=== PATIENT | female | born 1970 | race Caucasian/White ===

== ENCOUNTER 2017-05-07 10:02 | Inpatient (IN) ==
--- OUTSIDE RECORDS SUMMARY | 2017-05-07 11:23 | External Medical Summary | Referral Summary ---
:1970 Author Care Team Providers Name Role Phone Lucille Cintron Primary Care Physician Encounter [facility] [id number] Date(s): 07/13/14 - 07/13/14 Via [facility], Venkatesh Family [address] [place] [id number] Discharge Diagnosis: Cough Discharge Diagnosis: Bronchitis Discharge Disposition: Home or Self Care Attending Physician: Bonnie Cantu APRN Admitting Physician: Bonnie Cantu APRN Vital Signs Most recent to oldest [Reference Range]: 1 Temperature Tympanic [36.6-38.1 degC] 37 degC (07/13/14 2:05 PM) Peripheral Pulse Rate [60-100 bpm] 72 bpm (07/13/14 2:05 PM) Blood Pressure [90-140/60-90 mmHg] 132/88 mmHg (07/13/14 2:05 PM) Problem List Condition Effective Dates Status Health Status Informant Allergy(Confirmed) Active Allergic rhinitis/Hay Fever(Confirmed) Active Depression(Confirmed) Active Fibromyalgia(Confirmed) Active Migraine headache(Confirmed) Active Overweight(Confirmed) Active Seasonal allergies(Confirmed) Active Sleep apnea(Confirmed) Active 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) Tobacco user(Confirmed) Active patient Allergies, Adverse Reactions, Alerts Substance Reaction Severity Status gabapentin Active temazepam Active Wellbutrin1 Active 1had suicidal thoughts Medications Lolita-D 12 Hour 1 tabs, Oral, Daily, 0 Refill(s) Start Date: 07/13/14 Status: Orderedamoxicillin 875 mg oral tablet 1 tabs, Oral, BID, X 7 days, # 14 tabs, 0 Refill(s), Pharmacy: [facility] #[id number], 1 tabs OralBID,x7 days Start Date: 07/13/14 Stop Date: 07/20/14 Status: OrderedCeleXA 40 mg oral tablet See Instructions, TAKE ONE TABLET BY MOUTH EVERY DAY, # 30 tabs, eRx: [facility] #[id number], TAKEONE TABLET BY MOUTH EVERY DAY Special Instructions: TAKE ONE TABLET BY MOUTH EVERY DAY Start Date: 06/09/14 Status: OrderedFlexeril 5 mg, Oral, BID, Anxiety, also for fibromyalgia pain, 0 Refill(s) Special Instructions: also for fibromyalgia pain Start Date: 09/30/13 Status: OrderedMaxalt 10 mg oral tablet tabs, Oral, Daily, 0 Refill(s) Start Date: 09/30/13 Status: OrderedMucinex D 1 tabs, Oral, BID, 0 Refill(s) Start Date: 06/04/14 Status: Orderedmultivitamin 1 tabs, Daily, 0 Refill(s) Start Date: 06/04/14 Status: OrderedPromethazine with Codeine 6.25 mg-10 mg/5 mL oral syrup 5 mL, Oral, q4hr, as needed for cough, # 60 mL, 0 Refill(s) Start Date: 06/04/14 Status: Ordered Results Hematology Most recent to oldest [Reference Range]: 1 WBC [5.0-10.0 K/uL] 10.4 K/uL *HI* (07/13/14 1:58 PM) RBC [3.70-5.20 M/uL] 4.30 M/uL (07/13/14 1:58 PM) Hgb [12.0-16.0 gm/dL] 13.4 gm/dL (07/13/14 1:58 PM) Hct [37.0-47.0 %] 38.4 % (07/13/14 1:58 PM) MCV [80.0-96.0 fL] 89.3 fL (07/13/14 1:58 PM) MCH [26.0-34.0 pg] 31.2 pg (07/13/14 1:58 PM) MCHC [32.0-36.0 gm/dL] 34.9 gm/dL (07/13/14 1:58 PM) RDW [0.0-14.5 %] 12.8 % (07/13/14 1:58 PM) Platelet [150-400 K/uL] 228 K/uL (07/13/14 1:58 PM) MPV [8.8-14.8 fL] 9.6 fL (07/13/14 1:58 PM) Neutrophils [50-70 %] 62 % (07/13/14 1:58 PM) Lymphocytes [20-40 %] 28 % (07/13/14 1:58 PM) Monocytes [4-8 %] 4 % (07/13/14 1:58 PM) Eosinophils [0-6 %] 5 % (07/13/14 1:58 PM) Basophils [0-2 %] 1 % (07/13/14 1:58 PM) Neutro Absolute [2.50-7.00 K/uL] 6.47 K/uL (07/13/14 1:58 PM) Lymph Absolute [1.00-4.00 K/uL] 2.90 K/uL (07/13/14 1:58 PM) [place] Absolute [0.20-0.80 K/uL] 0.45 K/uL (07/13/14 1:58 PM) Eos Absolute [0.00-0.60 K/uL] 0.55 K/uL (07/13/14 1:58 PM) Baso Absolute [0.00-0.30 K/uL] 0.06 K/uL (07/13/14 1:58 PM) Immunizations Vaccine Date Refusal Reason tetanus/diphth/pertuss (Tdap) adult/adol 09/12/12 pneumococcal 23-polyvalent vaccine 12/23/08 tetanus toxoid 11/13/95 Procedures Procedure Date Related Diagnosis Body Site Collection of venous blood by venipuncture 07/13/14 Bilateral tubal ligation 1990 section Hysterectomy Knee scope Social History Social History Type Response Smoking Status Former smoker; Type: Cigarettes Assessment and Plan Extracted from: Title: Office Visit Note Author: Bonnie Cantu APRN Date: 07/13/14 Assessment/Plan 1.Bronchitis medrol dose pack, amox. cont with mucinex dm, humidifier. avoid irritant. let us know if s/s persist or worsen. Cough Orders: amoxicillin, 1 tabs, Oral, BID, X 7 days, # 14 tabs, 0 Refill(s), Pharmacy: [facility] #[id number], 1 tabs Oral BID,x7 days
--- NOTE | 2017-05-07 11:42 | History and Physical ---
HPI Patient is a 46-year-old female who presented to the office to see Dr. Lev Pepe this morning. She presented with a chief complaint of a three-week history of nausea, vomiting, diarrhea. She would getting better for a few days and then this started up again. In addition, the patient also presented with the same duration of diffuse abdominal pain in the left lower quadrant. Over the last two to three days she has been having difficulty holding liquids down. She feels "miserable." Her abdominal pain is described as a constant wave, cramping and severely manifested. She had diarrhea six times every day. On the days she has diarrhea she became lightheaded. She says she feels like she is going to pass out. She has tried Zantac and probiotics to no effect. The patient did develop upper URI symptoms three weeks ago. She was treated with amoxicillin and prednisone by a physician, I believe. REVIEW OF SYSTEMS Denies hematochezia, melena. Denies TIA or CVA symptoms. Denies hematemesis. No hemoptysis. No fever or chills. PAST MEDICAL HISTORY 1. Anxiety disorder. 2. Depression. 3. Migraine headache. 4. Diabetes. 5. Asthma. 6. Fibromyalgia. 7. Sleep apnea. 8. Exogenous obesity. 9. Hyperprolactinemia. 10. Galactorrhea in a female. 11. Morbid obesity with BMI 40-44.9 adult. ALLERGIES Codeine, bupropion, hydrocodone. FAMILY HISTORY She has listed diabetes in father and paternal grandmother, alcoholism in paternal grandfather. Bone cancer in maternal grandfather. Colon cancer, anemia. SOCIAL HISTORY The patient is , with two children. She does exercise two to four times per week. She is a former smoker. She drinks on social basis typically holidays and special occasions only. She drinks caffeine, one to two cups per day. CURRENT MEDICATIONS 1. Albuterol inhaler two puffs q.i.d. p.r.n. 2. Celexa 40 mg one tablet daily. 3. Cyclobenzaprine 10 mg one tablet at bedtime. 4. Flonase one spray each nostril twice daily. 5. Fluticasone/salmeterol 100/50 mcg one puff q.i.d. 6. Klonopin 0.5 mg one tablet t.i.d. p.r.n. 7. Multivitamin one tablet p.o. q.a.m. 8. Rizatriptan 10 mg one tablet daily. 9. Singular 10 mg one tablet p.o. q.h.s. 10. Venlafaxine 25 mg one tablet daily. 11. Zyrtec 10 mg one tablet daily. PHYSICAL EXAM GENERAL: The patient looks ill. HEENT: Unremarkable. NECK: Supple. CHEST: Lungs are clear to auscultation bilaterally. No wheezing or rales. CARDIOVASCULAR: Regular rate and rhythm. No murmur. ABDOMEN: Soft. The patient is tender diffusely, most severe in the left lower quadrant and to some extent in the right lower quadrant. Bowel sounds are normoactive. The patient does not present with a surgical abdomen, i.e., no guarding or rebound. EXTREMITIES: No cyanosis, clubbing or edema. NEUROLOGIC: Grossly intact. The patient is awake, alert and oriented x 3. No focal neurologic deficits. ASSESSMENT 1. Diffuse abdominal pain, mostly in left lower quadrant. 2. Intractable nausea and vomiting. 3. Intractable/recurrent diarrhea. 4. Acute dehydration. 5. Depression which is chronic. 6. Asthma - quiescent. PLAN 1. Admit patient to [facility] for further evaluation and recommendations. 2. Start IV fluids. 3. Start patient on empiric Flagyl for coverage of possible Clostridium difficile. 4. Obtain CT of abdomen and pelvis with IV contrast only. 5. Make patient n.p.o. for now. We spent about 30 minutes for this admission. [facility]ITALОльга
[2017-05-07 12:10] VITALS: BMI 44.6
[2017-05-07] MEDS ORDERED: METOCLOPRAMIDE 10mg/2ml INJECTION IVP PRN (12:18)
[2017-05-07] MEDS ORDERED: D5-1/2NS with KCL 20mEq 1,000 ML IV SCH ×2 (12:30→14:30)
[2017-05-07] MEDS: PANTOPRAZOLE 40 MG INJECTION IVP SCH ×2 (12:35→23:01)
[2017-05-07] MEDS: MetroNIDAZOLE PB 500 MG/100 ML BAG IV SCH ×2 (13:36→20:27)
[2017-05-07] MEDS: MORPHINE SULFATE 4mg INJECTION IVP PRN ×2 (13:42→20:23)
[2017-05-07] MEDS: ONDANSETRON 4 MG/2 ML INJECTION IVP PRN ×2 (13:44→20:22)
[2017-05-07] MEDS ORDERED: SALINE FLUSH 10ml SYRINGE ONE (14:54)
[2017-05-07] MEDS ORDERED: NS 100 ML ONE (14:54)
[2017-05-07] MEDS ORDERED: IOHEXOL 300mg/ml 100ml INJECTION ONE (14:54)
--- NOTE | 2017-05-07 16:32 | CT Scan Report ---
EXAM: CT abdomen pelvis with contrast. LOCATION OF DICTATION: [place] HISTORY: SEVERE ABD. PAIN,N/V COMPARISON: No prior studies are available for comparison TECHNIQUE: CT images were obtained of the abdomen and pelvis utilizing 85 mL of Omnipaque 300. Coronal and sagittal reformations were utilized. Automated Exposure Control and Iterative Reconstruction dose reducing techniques were utilized. CT ABDOMEN PELVIS FINDINGS: LUNG BASES: Unremarkable LIVER: The liver is mildly enlarged and demonstrates fatty infiltration. The liver measures 20.5 cm craniocaudally. SPLEEN: Unremarkable. GALLBLADDER: Unremarkable. PANCREAS: Unremarkable. ADRENAL GLANDS: Unremarkable. KIDNEYS: Unremarkable. AORTA: Unremarkable. LYMPH NODES: Unremarkable. STOMACH BOWEL LOOPS: Moderate mural thickening demonstrated about the ascending and transverse colon compatible with inflammatory or infectious colitis. There is some mild pericolonic fat stranding noted. No evidence for bowel obstruction or free air. The small bowel loops are normal. What appears to represent the appendix is normal. PERITONEAL CAVITY: There is no abdominal pelvic ascites. CT PELVIS URINARY BLADDER: Unremarkable. UTERUS: The vaginal cuff is normal. OSSEOUS STRUCTURES: There is mild spondylosis of the thoracolumbar spine. IMPRESSION: 1. Moderate mural thickening involving the ascending and transverse colon compatible with inflammatory or infectious colitis. .
[2017-05-07] MEDS: D5-1/2NS with KCL 20mEq 1,000 ML IV SCH (20:21)
[2017-05-08] MEDS: MetroNIDAZOLE PB 500 MG/100 ML BAG IV SCH ×4 (01:35→20:54)
[2017-05-08] MEDS: D5-1/2NS with KCL 20mEq 1,000 ML IV SCH ×3 (05:28→14:23)
[2017-05-08] MEDS: MORPHINE SULFATE 4mg INJECTION IVP PRN ×2 (06:17→21:56)
[2017-05-08] MEDS: ONDANSETRON 4 MG/2 ML INJECTION IVP PRN ×2 (06:18→20:52)
[2017-05-08] MEDS: PANTOPRAZOLE 40 MG INJECTION IVP SCH ×2 (08:33→20:53)
--- NOTE | 2017-05-08 20:22 | Progress Note ---
DATE 05/08/2017 KARISSA Kelly is sitting in room 148 on the medical floor when I saw her this evening. She seems to be a little uncomfortable. She thought she was having a rough afternoon with pain, particularly in her left lower quadrant region. She is a little bit better this evening. She remains n.p.o. Stool was positive for Clostridium difficile. Her diarrhea is actually resolving. Her stool has begun to form now. PHYSICAL EXAM VITAL SIGNS: Blood pressure 110/63, pulse 84, temperature 99.3, respirations 18 , oxygen saturation 95% on room air. GENERAL: The patient looks ill still. NECK: Supple. CHEST: Lungs are clear. CARDIOVASCULAR: Regular rate and rhythm. ABDOMEN: Soft. Positive bowel sounds. The patient is tender to palpation at the left lower quadrant and also mildly in the epigastric region. Minimal tenderness in the right lower quadrant. EXTREMITIES: No cyanosis, clubbing or edema. NEUROLOGIC: Grossly intact. LABORATORY (this morning) Potassium 4.0, BUN 5.0, creatinine 0.6, glucose 126. Stool for Clostridium difficile positive for toxin A and B gene. ASSESSMENT 1. Clostridium difficile colitis particularly involving ascending and transverse colon on CT. The patient is more tender in the left lower quadrant region. 2. Diffuse abdominal pain, more so in the left lower quadrant, due to #1. 3. Nausea and vomiting, improving. 4. Acute diarrhea due to #1 - improving. 5. Acute dehydration, treated and corrected. The patient remains on IV fluids. 6. Asthma. This is quiescent. No acute exacerbation at this time. 7. Depression. 8. Exogenous obesity. PLAN 1. Start patient on clear liquids tonight and see how she does. 2. Continue IV fluid replacement as well as IV Flagyl. 3. Resume patient's home medications tonight and see how she responds to that. 4. Follow up electrolytes in the morning. 5. I am going to be out of state for the next few days and will be back here 05/14/2017. I am checking out to Dr. Bean, hospitalist, this evening. This patient has been discussed with Dr. Bean. . SUSSY
[2017-05-09] MEDS: MetroNIDAZOLE PB 500 MG/100 ML BAG IV SCH ×4 (02:34→18:55)
[2017-05-09] MEDS: D5-1/2NS with KCL 20mEq 1,000 ML IV SCH ×4 (02:35→23:15)
[2017-05-09] MEDS: ONDANSETRON 4 MG/2 ML INJECTION IVP PRN (05:44)
[2017-05-09] MEDS: MORPHINE SULFATE 4mg INJECTION IVP PRN (05:44)
[2017-05-09] MEDS: PANTOPRAZOLE 40 MG INJECTION IVP SCH ×2 (08:08→21:44)
[2017-05-09] MEDS ORDERED: ClonazePAM 0.5 MG TABLET PO PRN (15:26)
--- NOTE | 2017-05-09 15:36 | Progress Note ---
- Date 05/09/17 Subjective: Dr. Bean covering for Dr. Pepe-chart reviewed, labs reviewed, radiology reviewed Patient was seen this afternoon. She is able to eat some ice chips and have small sips of water. If she tries anything else she has nausea, bloating and increased abdominal pain. She states she still occasionally will have waves of pain and nausea. Her stools are soft and brown. She has history of asthma and allergies but those are doing okay now. She has not yet restarted on her usual home medications for asthma, allergies or depression. She does have obstructive sleep apnea and is using her CPAP here Without difficulties. Her urine looked darker brown today and a urinalysis was ordered. Objective Vital signs: Temperature 98.1 F 05/09/17 15:30 Pulse Rate 70 05/09/17 15:30 Respiratory Rate 16 05/09/17 15:30 Blood Pressure 117/65 05/09/17 15:30 Pulse Oximetry 97 05/09/17 15:30 Height/Weight/BMI: Height 1.55 m Weight 108.7 kg Body Mass Index 44.6 Comments: She is afebrile, blood pressure 117/65, pulse 70, O2 sat 97% on room air GEN-, oriented, no acute distress HEENT-sclera anicteric, oropharynx is moist NECK-supple CV-regular rate and rhythm CHEST-her to auscultation bilaterally ABD-, soft mild epigastric and left lower quadrant tenderness, no rebound, no guarding, positive bowel sounds -no Altamirano, urine looks a little bit dark EXT-no edema NEURO-no focal deficits SKIN-warm and dry and without rashes Results - Labs CBC & Chem 7: 05/07/17 14:23 05/09/17 04:47 Assessment and Plan Assessment and Plan: Impression C. difficile colitis with mural thickening seen on descending and transverse colon on CT scan Diffuse abdominal pain secondary to C. difficile 3 weeks of nausea, vomiting and diarrhea secondary to C. difficile Dehydration-resolved Asthma-stable Obstructive sleep apnea-the patient is using her home CPAP Depression Obesity Plan Continue IV Flagyl for C. difficile colitis. Start probiotics Restart the patient's home asthma medicine and medication for depression Check pre-albumin and consider PPN Recheck CBC and C-reactive protein regarding C. difficile tomorrow. Recheck CMP, magnesium and phosphorous regarding dehydration and her by mouth intake We'll check a UA regarding dark urine DVT Prophylaxis: SCD's Resuscitation Status: Full Code - Physician Narrative Physician: Kyleigh Bean MD Narrative: Date: 05/09/17 Time: 1531 Hospital Course Summary Disclaimer: The visit summary below is not to be considered part of the above Progress Note.
[2017-05-09] MEDS: FLUTICASONE NASAL SPRAY 50mcg EA NOSTRIL SCH (17:40)
[2017-05-09] MEDS: CITALOPRAM 40 MG TABLET PO SCH (17:41)
[2017-05-09] MEDS: LACTOBACILLUS (15B cfu) CAPSULE PO SCH (18:00)
[2017-05-09] MEDS ORDERED: ALBUTEROL 2.5mg/3ml (0.083%) NEB AEROSOL PRN (19:00)
[2017-05-09] MEDS: VENLAFAXINE 75 MG TABLET PO SCH (21:41)
[2017-05-09] MEDS: MONTELUKAST 10 MG TABLET PO SCH (21:41)
[2017-05-09] MEDS: SALINE FLUSH 10ml SYRINGE IV PRN (21:44)
[2017-05-10] MEDS: MetroNIDAZOLE PB 500 MG/100 ML BAG IV SCH ×4 (00:50→19:50)
[2017-05-10] MEDS: SALINE FLUSH 10ml SYRINGE IV PRN ×3 (07:50→14:41)
[2017-05-10] MEDS: D5-1/2NS with KCL 20mEq 1,000 ML IV SCH (08:22)
[2017-05-10] MEDS ORDERED: PPN - PHARMACY CONSULT MC ONE (08:22)
[2017-05-10] MEDS: CITALOPRAM 40 MG TABLET PO SCH (09:51)
[2017-05-10] MEDS: CETIRIZINE 10 MG TABLET PO SCH (09:51)
[2017-05-10] MEDS: LACTOBACILLUS (15B cfu) CAPSULE PO SCH ×2 (09:51→17:46)
[2017-05-10] MEDS: PANTOPRAZOLE 40 MG INJECTION IVP SCH ×2 (09:52→21:39)
[2017-05-10] MEDS: VENLAFAXINE 75 MG TABLET PO SCH ×2 (09:52→21:40)
[2017-05-10] MEDS: MULTI-VIT INFUSION 10 ML, MULTI-TRACE ELEMENTS 1 ML in PPN - STANDARD FORMULA 2,000 ML IV SCH (09:52)
[2017-05-10] MEDS: FLUTICASONE NASAL SPRAY 50mcg EA NOSTRIL SCH (09:56)
--- NOTE | 2017-05-10 10:11 | Pharmacy Consult-TPN/PPN ---
Pharmacy Consult-TPN/PPN - Laboratory Information Chemistry Turbidity < 20 (0-20) 05/10/17 04:03 Sodium 140 MEQ/L (134-144) 05/10/17 04:03 Potassium 4.0 MEQ/L (3.6-5) 05/10/17 04:03 Chloride 105 MEQ/L (98-107) 05/10/17 04:03 Carbon Dioxide 27 MEQ/L (22-30) 05/10/17 04:03 Anion Gap 8 MEQ/L (5-15) 05/10/17 04:03 BUN 3.0 MG/DL (7-17) L 05/10/17 04:03 Creatinine 0.7 MG/DL (0.7-1.2) 05/10/17 04:03 GFR Calculation 90 05/10/17 04:03 BUN/Creatinine Ratio 4 RATIO (6-26) L 05/10/17 04:03 Glucose 135 MG/DL (65-110) H 05/10/17 04:03 Calculated Osmolality 268 MOSM/KG (261-280) 05/10/17 04:03 Calcium 8.8 MG/DL (8.4-10.2) 05/10/17 04:03 Phosphorus 4.7 MG/DL (2.5-4.5) H 05/10/17 04:03 Magnesium 1.9 MG/DL (1.6-2.3) 05/10/17 04:03 Total Bilirubin 0.20 MG/DL (0.20-1.30) 05/10/17 04:03 Icterus Index < 2 (0-7) 05/10/17 04:03 AST 21 U/L (14-36) 05/10/17 04:03 ALT 38 U/L (9-52) 05/10/17 04:03 Alkaline Phosphatase 57 U/L (38-126) 05/10/17 04:03 C-Reactive Protein 41.7 MG/L (0-9) H 05/07/17 14:23 Total Protein 6.6 G/DL (6.3-8.2) 05/10/17 04:03 Albumin 3.4 G/DL (3.5-5.0) L 05/10/17 04:03 Globulin 3.2 G/DL (2.4-3.6) 05/10/17 04:03 Albumin/Globulin Ratio 1.1 RATIO (1.1-2.2) 05/10/17 04:03 Prealbumin 8.1 MG/DL (17.6-36.0) L 05/09/17 04:57 Plasma Lactate 0.8 MMOL/L (0.6-2.2) 05/07/17 22:10 Specimen Hemolysis 33 (0-25) H 05/10/17 04:03 - Consult Information PPN Consult: CIERRA is a 46 yo female who was originally admitted for nausea, vomiting, and dehydration. Dr. Bean wanted the patient to be on a P.P.N.. The electrolytes were good so I ordered a Standard P.P.N. to start @ 85 mL/hr. Also started Fat Emulsion 20% 500 ml. The total non-protein calories per day is about 1,200 calories. I also decreased the rate of the current LV IV to 65 mL/hr. The pharmacy will continue to monitor and adjust the formula and/or rate of the P.P.N. Thanks for the P.P.N. Consult, Jens Guerrero, Pharmacist.
[2017-05-10] MEDS ORDERED: FAT EMULSION 20% 500 ML BAG IV SCH (16:00)
[2017-05-10] MEDS ORDERED: FAT EMULSION 20% 500 ML IV SCH (16:00)
[2017-05-10] MEDS: MONTELUKAST 10 MG TABLET PO SCH (21:39)
[2017-05-10] MEDS: VANCOMYCIN 250mg/5ml ORAL LIQ PO SCH (21:40)
--- NOTE | 2017-05-10 22:02 | Progress Note ---
- Date 05/10/17 Subjective: The patient was seen earlier this afternoon in her room. She is continuing to have some intermittent abdominal pain. By mouth intake has been poor. She is willing to have PPN. She did need a new peripheral IV placed. She denies any shortness of breath or chest pain. Her stools are soft. Objective Vital signs: Temperature 98.1 F 05/10/17 16:00 Pulse Rate 72 05/10/17 16:00 Respiratory Rate 16 05/10/17 20:31 Blood Pressure 121/74 05/10/17 16:00 Pulse Oximetry 94 05/10/17 16:00 Height/Weight/BMI: Height 1.55 m Weight 108.1 kg Body Mass Index 44.6 Comments: GEN-alert, oriented, no acute distress CV-regular rate and rhythm CHEST-clear to auscultation bilaterally ABD-soft, mild tenderness, no rebound or guarding, positive bowel sounds -no Alt[place]irano EXT-no edema NEURO-no focal deficits SKIN-warm and dry and without rashes Results - Labs CBC & Chem 7: 05/10/17 04:03 05/10/17 04:03 Microbiology Results: Pre-albumin is low at 8.1. Phosphorus is 4.7. Magnesium 1.9. Liver enzymes are essentially normal. Albumin is mildly low at 3.4. Urinalysis yesterday is essentially normal. Assessment and Plan Assessment and Plan: Impression C. difficile colitis with mural thickening seen on descending and transverse colon on CT scan-patient continues to have some intermittent abdominal pain and poor by mouth intake. Diffuse abdominal pain secondary to C. difficile-proving 3 weeks of nausea, vomiting and diarrhea secondary to C. difficile Dehydration-resolved Asthma-stable Obstructive sleep apnea-the patient is using her home CPAP Depression Obesity Moderate malnutrition with prealbumin of 8.1-she has not eaten well in 3 weeks Plan Continue IV Flagyl for C. difficile colitis. Will add oral vancomycin. Consider ID consultation Continue probiotics Continue patient's home asthma medicine and medication for depression *PPN regarding malnutrition. We'll check a renal panel, CBC, C-reactive protein tomorrow Discussed with pharmacy this morning regarding PPN. Discussed with IV team regarding need for new IV placement. DVT Prophylaxis: SCD's GI Prophylaxis: Protonix Resuscitation Status: Full Code - Time spent with patient Time with patient PN: 30 minutes - Physician Narrative Physician: Kyleigh Bean MD Narrative: Date: 05/10/17 Time: 2155 Hospital Course Summary Disclaimer: The visit summary below is not to be considered part of the above Progress Note.
[2017-05-11] MEDS: MetroNIDAZOLE PB 500 MG/100 ML BAG IV SCH ×2 (00:25→07:43)
[2017-05-11] MEDS: VANCOMYCIN 250mg/5ml ORAL LIQ PO SCH ×4 (02:55→21:25)
[2017-05-11] MEDS: VENLAFAXINE 75 MG TABLET PO SCH ×2 (09:11→21:26)
[2017-05-11] MEDS: CETIRIZINE 10 MG TABLET PO SCH (09:11)
[2017-05-11] MEDS: SALINE FLUSH 10ml SYRINGE IV PRN ×2 (09:11→12:19)
[2017-05-11] MEDS: LACTOBACILLUS (15B cfu) CAPSULE PO SCH ×2 (09:11→16:58)
[2017-05-11] MEDS: PANTOPRAZOLE 40 MG INJECTION IVP SCH ×2 (09:12→21:30)
[2017-05-11] MEDS: FLUTICASONE NASAL SPRAY 50mcg EA NOSTRIL SCH (09:12)
[2017-05-11] MEDS: CITALOPRAM 40 MG TABLET PO SCH (09:25)
[2017-05-11] MEDS: MetroNIDAZOLE 500 MG TABLET PO SCH ×2 (12:19→16:58)
[2017-05-11] MEDS: D5-1/2NS with KCL 20mEq 1,000 ML IV SCH (12:19)
[2017-05-11] MEDS: MULTI-VIT INFUSION 10 ML, MULTI-TRACE ELEMENTS 1 ML in PPN - STANDARD FORMULA 2,000 ML IV SCH (15:25)
--- NOTE | 2017-05-11 18:49 | Progress Note ---
- Date 05/11/17 Subjective: Pt seen in lying in bed after supper. She is feeling much better. NO abdominal pain today. Only one mild episode of pain yesterday. One stool this am which she describes as very small, soft, formed balls. She ate all of her supper. NO nausea. Wants to go home. C/o IV site. It is red and puffy and tender. Objective Vital signs: Temperature 97.0 F 05/11/17 14:36 Pulse Rate 84 05/11/17 14:36 Respiratory Rate 18 05/11/17 14:36 Blood Pressure 124/81 05/11/17 14:36 Pulse Oximetry 98 05/11/17 14:36 Height/Weight/BMI: Height 1.55 m Weight 107.2 kg Body Mass Index 44.6 - Constitutional Present: no acute distress, well nourished, well developed - Routine Respiratory Exam Present: CTA bilaterally. Absent: wheezes - Routine Cardiovascular Exam Present: RRR. Absent: murmur - Routine Abdominal Exam Present: soft, normoactive bowel sounds, non distended. Absent: tenderness - Routine Extremities Exam Present: edema, normal capillary refill - Routine Skin Exam Present: dry, warm Comments: mild erythema and edema proximal to IV site in L forearm - Routine Neurological Exam Present: alert, oriented X3 - Routine Lymphatic Exam Lymphatic: Absent: adenopathy - Routine Psychiatric Exam Present: normal affect, cooperative Results - Labs CBC & Chem 7: 05/11/17 05:15 05/11/17 05:15 Assessment and Plan Assessment and Plan: Impression C. difficile colitis with mural thickening seen on descending and transverse colon on CT scan-patient continues to have some intermittent abdominal pain and poor by mouth intake. Diffuse abdominal pain secondary to C. difficile-resolved 3 weeks of nausea, vomiting and diarrhea secondary to C. difficile Dehydration-resolved Asthma-stable Obstructive sleep apnea-the patient is using her home CPAP Depression Obesity Moderate malnutrition with prealbumin of 8.1-she has not eaten well in 3 weeks Plan Patient much improved. Tolerating switch from IV to PO metronidazole. Dr Bean discussed case with Dr. Hedrick who recommended DC of vanco if pt is better. WIll DC vanco. Her IV will need to be DC'd due to infiltration. OK to leave out as pt will likely DC tomorrow and is taking PO well. 05/10/2017-10 PM -I reviewed this chart, the patient history, and the [employer]'s/PA' s documented findings as above. We discussed and formulated the assessment and plan as above with the additions below.-Dr. Bean for Dr. Pepe Patient is seen this evening in her room. She states she's feeling better. She ate a regular meal for supper. Abdomen is no longer painful. Stools are more firm. She does have some mild pain and erythema in her upper left forearm where she had an IV infiltrate. On exam she is alert and in no acute distress. Chest is clear to auscultation. Cardiovascular reveals a regular rate and rhythm. Abdomen is soft and nontender with positive bowel sounds. Lower extremities are free of edema. Left arm reveals some mild erythema and swelling on the lateral portion of the upper forearm. This is likely from IV infiltration. Does not appear to be infected at this time. She also has some mild erythema where she had an IV in her distal forearm on the left. Would recommend heat pack for her arm. Impression and plan C. difficile-she is starting to improve. Pain has resolved. She is able to eat a regular diet now. PPN was discontinued. IV fluids were discontinued after she had an infiltration. We did change to oral metronidazole. She seems to be doing better and I don't think she will need the oral vancomycin. Probable discharge tomorrow if doing well. Resuscitation Status: Full Code - Physician Narrative Physician: Kyleigh Bean MD Narrative: Date: 05/11/17 Time: 1845 Hospital Course Summary Disclaimer: The visit summary below is not to be considered part of the above Progress Note. Hospital Course: 05/07/17 - Dr. Sorto 1. Admit patient to [facility] for further evaluation and recommendations. 2. Start IV fluids. 3. Start patient on empiric Flagyl for coverage of possible Clostridium difficile. 4. Obtain CT of abdomen and pelvis with IV contrast only. 5. Make patient n.p.o. for now. 05/08/17 - Dr. Sorto 1. Start patient on clear liquids tonight and see how she does. 2. Continue IV fluid replacement as well as IV Flagyl. 3. Resume patient's home medications tonight and see how she responds to that. 4. Follow up electrolytes in the morning. 5. I am going to be out of state for the next few days and will be back here 05/14/2017. I am checking out to Dr. Bean, hospitalist, this evening. This patient has been discussed with Dr. Bean. 05/09/17 Continue IV Flagyl for C. difficile colitis. Start probiotics Restart the patient's home asthma medicine and medication for depression Check pre-albumin and consider PPN Recheck CBC and C-reactive protein regarding C. difficile tomorrow. Recheck CMP, magnesium and phosphorous regarding dehydration and her by mouth intake We'll check a UA regarding dark urine 05/10/17 Continue IV Flagyl for C. difficile colitis. Will add oral vancomycin. Consider ID consultation Continue probiotics Continue patient's home asthma medicine and medication for depression *PPN regarding malnutrition. We'll check a renal panel, CBC, C-reactive protein tomorrow Discussed with pharmacy this morning regarding PPN. Discussed with IV team regarding need for new IV placement. 05/11/17 Patient much improved. Tolerating switch from IV to PO metronidazole. Dr Bean discussed case with Dr. Hedrick who recommended DC of vanco if pt is better. WIll DC vanco. Her IV will need to be DC'd due to infiltration. OK to leave out as pt will likely DC tomorrow and is taking PO well.
[2017-05-11 19:27] VITALS: RESP 16
[2017-05-11] MEDS: MONTELUKAST 10 MG TABLET PO SCH (21:26)
[2017-05-12] MEDS: VANCOMYCIN 250mg/5ml ORAL LIQ PO SCH ×3 (05:06→14:50)
[2017-05-12] MEDS: VENLAFAXINE 75 MG TABLET PO SCH (09:21)
[2017-05-12] MEDS: PANTOPRAZOLE 40 MG INJECTION IVP SCH ×2 (09:21→09:26)
[2017-05-12] MEDS: CITALOPRAM 40 MG TABLET PO SCH (09:22)
[2017-05-12] MEDS: FLUTICASONE NASAL SPRAY 50mcg EA NOSTRIL SCH (09:22)
[2017-05-12] MEDS: LACTOBACILLUS (15B cfu) CAPSULE PO SCH (09:22)
[2017-05-12] MEDS: MetroNIDAZOLE 500 MG TABLET PO SCH ×2 (09:22→13:11)
[2017-05-12] MEDS: CETIRIZINE 10 MG TABLET PO SCH (09:22)
[2017-05-12 11:29] VITALS: BP 141/82; PULSE 92; TEMP 98.9; O2SAT 95
--- NOTE | 2017-05-12 15:22 | Discharge Summary ---
Discharge Information Date of admission: 05/07/17 11:11 Anticipated date of discharge: 05/12/17 Attending Physician: Lev Pepe MD Primary care physician: Lev Pepe MD Consults: 05/11/17 07:19 Physician Consult [CONS] Routine Consulting Provider: Nazanin Hedrick Reason For Exam: cdiff Ordering Provider has Notified Prison [employer] Supervisor: Yes Comment: I will notify C. difficile colitis with mural thickening seen on descending and transverse colon on CT scan-patient continues to have some intermittent abdominal pain and poor by mouth intake. Diffuse abdominal pain secondary to C. difficile-resolved 3 weeks of nausea, vomiting and diarrhea secondary to C. difficile Dehydration-resolved Asthma-stable Obstructive sleep apnea-the patient is using her home CPAP Depression Obesity Moderate malnutrition with prealbumin of 8.1-she has not eaten well in 3 weeks Left upper forearm IV infiltration with mild erythema and edema-improving - Laboratory Labs: 05/11/17 05:15 05/12/17 13:21 White count on admission was 11.4 with 73.6% neutrophils C-reactive protein on admission was 41.7 and improved to 30.7 prior to discharge Pre-albumin was low at 8.1 CPK was normal at 56 Plasma lactate was normal 2 on admission UA was essentially normal Stool for C. difficile was positive - Radiology Radiology: Date of Exam: 05/07/17 Ordering Provider: Lev Pepe MD Type of Exam(s): CT abdomen pelvis w con Reason for Exam(s): SEVERE ABD. PAIN,N/V EXAM: CT abdomen pelvis with contrast. LOCATION OF DICTATION: [place] HISTORY: SEVERE ABD. PAIN,N/V COMPARISON: No prior studies are available for comparison TECHNIQUE: CT images were obtained of the abdomen and pelvis utilizing 85 mL of Omnipaque 300. Coronal and sagittal reformations were utilized. Automated Exposure Control and Iterative Reconstruction dose reducing techniques were utilized. CT ABDOMEN PELVIS FINDINGS: LUNG BASES: Unremarkable LIVER: The liver is mildly enlarged and demonstrates fatty infiltration. The liver measures 20.5 cm craniocaudally. SPLEEN: Unremarkable. GALLBLADDER: Unremarkable. PANCREAS: Unremarkable. ADRENAL GLANDS: Unremarkable. KIDNEYS: Unremarkable. AORTA: Unremarkable. LYMPH NODES: Unremarkable. STOMACH BOWEL LOOPS: Moderate mural thickening demonstrated about the ascending and transverse colon compatible with inflammatory or infectious colitis. There is some mild pericolonic fat stranding noted. No evidence for bowel obstruction or free air. The small bowel loops are normal. What appears to represent the appendix is normal. PERITONEAL CAVITY: There is no abdominal pelvic ascites. CT PELVIS URINARY BLADDER: Unremarkable. UTERUS: The vaginal cuff is normal. OSSEOUS STRUCTURES: There is mild spondylosis of the thoracolumbar spine. IMPRESSION: 1. Moderate mural thickening involving the ascending and transverse colon compatible with inflammatory or infectious colitis. . History of Present Illness HPI: Patient is a 46-year-old female who presented to the office to see Dr. Lev Pepe this morning. She presented with a chief complaint of a three-week history of nausea, vomiting, diarrhea. She would getting better for a few days and then this started up again. In addition, the patient also presented with the same duration of diffuse abdominal pain in the left lower quadrant. Over the last two to three days she has been having difficulty holding liquids down. She feels "miserable." Her abdominal pain is described as a constant wave, cramping and severely manifested. She had diarrhea six times every day. On the days she has diarrhea she became lightheaded. She says she feels like she is going to pass out. She has tried Zantac and probiotics to no effect. The patient did develop upper URI symptoms three weeks ago. She was treated with amoxicillin and prednisone by a physician, I believe. Objective Vital signs: Temperature 98.9 F 05/12/17 11:29 Pulse Rate 92 05/12/17 11:29 Respiratory Rate 16 05/12/17 11:29 Blood Pressure 141/82 H 05/12/17 11:29 Pulse Oximetry 95 05/12/17 11:29 Height/Weight/BMI: Height 1.55 m Weight 106.5 kg Body Mass Index 44.6 Comments: The patient is doing well this afternoon. She is afebrile. On exam she is alert and oriented 3 and in no acute distress. Chest is clear to auscultation. Cardiovascular reveals a regular rate and rhythm. Abdomen is soft and nontender. Extremities are free of edema. Skin is warm and dry and without rashes. On her left upper forearm, she has some very faint erythema and swelling where she had an IV infiltrate. She has minimal tenderness. It does not look like cellulitis and is more likely just irritated from the infiltration. Hospital Course This is a general summary of the patient's hospital course. For more details refer to the complete medical record. Hospital course: 05/07/17 - Dr. Sorto 1. Admit patient to [facility] for further evaluation and recommendations. 2. Start IV fluids. 3. Start patient on empiric Flagyl for coverage of possible Clostridium difficile. 4. Obtain CT of abdomen and pelvis with IV contrast only. 5. Make patient n.p.o. for now. 05/08/17 - Dr. Sorto 1. Start patient on clear liquids tonight and see how she does. 2. Continue IV fluid replacement as well as IV Flagyl. 3. Resume patient's home medications tonight and see how she responds to that. 4. Follow up electrolytes in the morning. 5. I am going to be out of state for the next few days and will be back here 05/14/2017. I am checking out to Dr. Bean, hospitalist, this evening. This patient has been discussed with Dr. Bean. 05/09/17 Continue IV Flagyl for C. difficile colitis. Start probiotics Restart the patient's home asthma medicine and medication for depression Check pre-albumin and consider PPN Recheck CBC and C-reactive protein regarding C. difficile tomorrow. Recheck CMP, magnesium and phosphorous regarding dehydration and her by mouth intake We'll check a UA regarding dark urine 05/10/17 Continue IV Flagyl for C. difficile colitis. Will add oral vancomycin. Consider ID consultation Continue probiotics Continue patient's home asthma medicine and medication for depression *PPN regarding malnutrition. We'll check a renal panel, CBC, C-reactive protein tomorrow Discussed with pharmacy this morning regarding PPN. Discussed with IV team regarding need for new IV placement. 05/11/17 Patient much improved. Tolerating switch from IV to PO metronidazole. Dr Bean discussed case with Dr. Hedrick who recommended DC of vanco if pt is better. WIll DC vanco. Her IV will need to be DC'd due to infiltration. OK to leave out as pt will likely DC tomorrow and is taking PO well. 05/12/2017-Dr. Bean The patient is doing very well. She is eating regular food. She is drinking well. She has soft stools but no longer diarrhea. She has no further abdominal pain. She is tolerating by mouth Flagyl. She appears stable for dismissal to home with Flagyl for 10 more days. We will continue probiotics. She is to follow up with her primary care physician in one week. She did have an IV that infiltrated yesterday in her left upper forearm. There is some mild erythema and mild tenderness. She states it is feeling better and he looks better than last night. I doubt that this is a cellulitis. I did notify her to continue to monitor this area, she can put some heat on it. If she notices that it is getting worse, she needs to return to the hospital or follow-up with her primary care doctor. Regarding her C. difficile, she needs to finish out a 10 day course of Flagyl. If she has recurrence of abdominal pain, vomiting, worsening diarrhea, fevers, lightheadedness, shortness of breath or any other concerning symptoms, she needs to return to the ER or if symptoms are not severe, follow-up with her primary care physician. Her urine is moderately dark. We did repeat a a significant metabolic profile today and CPK which were normal. Urinalysis was normal. Patient was urged to continue to drink plenty of fluids. Time spent with patient: discharge greater than 30 minutes Resuscitation Status: Full Code Discharge Plan - Discharge Disposition Disposition: Discharged Home, Self-Care *Condition: Stable Reason For Visit (Visit label in EMR): nausea, vomiting, dehydration - Discharge Medications *Discharge Medications: [place] MetroNIDAZOLE [Flagyl] 500 mg PO TID 10 Days #30 tab Acidoph/L.bulg/Bif.b/S.thermop [Bacid Caplet] 2 cap PO BIDWM 10 Days #20 tab Continue Fluticasone/Salmeterol 100/50 [Advair 100-50 Diskus] 2 puff INH QID Fluticasone Nasal [place] [Flonase] 1 spray NS DAILY Montelukast [Singulair] 10 mg PO HS Cetirizine [Zyrtec] 10 mg PO DAILY Albuterol HFA Inhaler [Ventolin Hfa 90 mcg/actuation] 2 puff ORAL INH Q4HR PRN PRN Reason: Shortness Of Air/Wheezing Rizatriptan [Maxalt Groundman 10 mg] 10 mg PO DAILY Cyclobenzaprine [Flexeril] 1 tab PO HS PRN PRN Reason: Muscle Spasm multivitamin tablet 1 tab PO QAM Klonopin (clonazepam) 0.5 mg tablet See Label Instructions PO TID PRN #30 tab PRN Reason: anxiety Celexa (citalopram) 40 mg tablet 40 mg PO DAILY #30 tab venlafaxine 75 mg tablet 75 mg PO .COMPLEX #30 tab - Discharge Packet/Instructions *Diet: As tolerated *Activity: As tolerated *Pain Management/Treatment: Flexeril or Tylenol as needed *Wound Care: Not applicable *Expected Signs/Symptoms: Mild fatigue, this should gradually improve. He may continue to have soft stools for a while. If you develop worsening diarrhea please notify your physician *Notify Physician if: Notify your physician or return to the emergency room if you have fever, abdominal pain, worsening diarrhea, vomiting, lightheadedness, shortness of breath, increased erythema or pain of her left forearm, or any other concerning symptoms. *During Business Hours Contact: Call Dr Pepe's office *After Business Hours Contact: [phone] transcribing operator head to have your physician paged *Pending Lab/Results: No Pending Lab - Referrals/Follow Up *Referrals/Follow Up: Lev Pepe MD [Family Provider] - 1 Week - Patient Handouts - Dismissal Complete Discharge Instructions are:: Complete Physician Narrative - Narrative Attestation Narrative: Date: 05/12/17 Time: 0473
== END 2017-05-12 16:10 | disposition home or self-care (01) | DRG 372 ==
LOC: MED 11:11
PROVIDERS: ADMIT Family Medicine; ATTEND Family Medicine